=== PATIENT | female | born 1975 | race African-American/Black ===

== ENCOUNTER 2018-01-25 19:32 | Emergency (ER) | payer BC ==
[~2018-01-25] VITALS: Ht 165.1 cm; Wt 84.8 kg
--- OUTSIDE RECORDS SUMMARY | 2018-03-10 03:36 | XMS REPORT ---
Author Author [facility] [place] Address Unknown Phone Unavailable Care Team Providers Care Forms Analyst Name Role Phone KATIA EARLY Unavailable Unavailable Problems This patient has no known problems. Allergies, Adverse Reactions, Alerts This patient has no known allergies or adverse reactions. Medications This patient has no known medications. Results Test Description Test Time Test Comments Text Results Atomic Results Result Comments SP LUMBAR, COMPLETE MIN 4VW [place] [address] Patient Name: KAREEM GARCIA MR #: [id number] : 1975 Age/Sex: 41/F Req #: [id number] Adm Physician: Ordered by: THANH LEÓN Report #: [id number] Location: ER Room/Bed: _ Procedure: [id number] DX/SP LUMBAR, COMPLETE MIN 4VW Exam Date: 04/14/17 Exam Time: 1735 REPORT STATUS: Signed PROCEDURE: L-SPINE COMPLETE COMPARISON: None. INDICATIONS: LOWER BACK PAIN FINDINGS: There are 5 lumbar-type vertebral bodies. The vertebral bodies are well-aligned without evidence of spondylolisthesis. There are no acute, displaced fractures, lytic or blastic lesions. The vertebral body and disc-space heights are well-maintained. Bilateral oblique views show no spondylolysis. The sacroiliac joints are unremarkable. Nonobstructive bowel gas pattern with moderate amount of retained stool. CONCLUSION: Essentially unremarkable lumbar spine radiograph. Lilli Duckworth M.D. Dictated by: Lilli Duckworth M.D. on 04/14/2017 at 17:59 Electronically approved by: Lilli Duckworth M.D. on 2016 at 17:59 Dictated By: LILLI DUCKWORTH MD 58 Transcribed By: ANIKA on 1758 COPY TO: THANH LEÓN
== END 2018-01-25 20:25 | disposition home or self-care (01) ==
LOC: FSED 19:32
DX: M54.5 Low back pain (principal); S39.012A Strain of muscle, fascia and tendon of lower back, initial encounter; W17.89XA Other fall from one level to another, initial encounter; Y92.008 Other place in unspecified non-institutional (private) residence as the place of occurrence of the external cause
CPT/HCPCS: 99283

== ENCOUNTER 2018-07-08 21:05 | Emergency (ER) | payer BC ==
[~2018-07-08] VITALS: Ht 165.1 cm; Wt 84.8 kg
== END 2018-07-08 22:15 | disposition home or self-care (01) ==
LOC: FSED 21:05
DX: R05 Cough (principal); J06.9 Acute upper respiratory infection, unspecified; J00 Acute nasopharyngitis [common cold]
CPT/HCPCS: 83518; 87400; 99283

== ENCOUNTER 2018-10-05 08:26 | Emergency (ER) | payer BC ==
[~2018-10-05] VITALS: Ht 162.6 cm; Wt 89.4 kg
[2018-10-05] MEDS ORDERED: KETOROLAC TROMETHAMINE 30 MG/ML VIAL IV STA (09:07)
[2018-10-05] MEDS ORDERED: KETOROLAC TROMETHAMINE 60 MG/2 ML VIAL IM ONE (09:45)
--- NOTE | 2018-10-05 09:59 | Diagnostic Imaging Report ---
EXAMINATION: PA and lateral views of the chest. COMPARISON: None CLINICAL HISTORY: Chest pain x1 day DISCUSSION: Lines/tubes: None. Lungs: The lungs are well inflated and clear. There is no evidence of pneumonia or pulmonary edema. Pleura: There is no pleural effusion or pneumothorax. Heart and mediastinum: The cardiomediastinal silhouette is normal. Bones and soft tissues: No acute bony abnormalities. Degenerative changes in the thoracic spine IMPRESSION: No acute cardiopulmonary abnormalities. Signed by: Dr. Torey Stover M.D. on 10/05/2018 9:56 AM
[2018-10-05 10:06] VITALS: BP 129/67
== END 2018-10-05 10:25 | disposition home or self-care (01) ==
LOC: FSED 08:26
DX: M94.0 Chondrocostal junction syndrome [Tietze] (principal)
CPT/HCPCS: 71046; 80053; 84484; 85025; 85379; 93005; 99284; J1885 ×2

== ENCOUNTER 2019-04-13 16:02 | Emergency (ER) | payer BC ==
[~2019-04-13] VITALS: Ht 162.6 cm; Wt 83.2 kg
[2019-04-13] MEDS ORDERED: KETOROLAC TROMETHAMINE 60 MG/2 ML VIAL IM ONE (16:45)
[2019-04-13] MEDS ORDERED: KETOROLAC TROMETHAMINE 60 MG/2 ML VIAL ONE (17:04)
--- NOTE | 2019-04-13 17:13 | Diagnostic Imaging Report ---
Shoulder complete CPT code: 81879 Indication: Tree branch fell on patient. Technique: Internal, external and Y-view of right shoulder obtained. Comparison: None. Findings: There is no current dislocation. No evidence of fracture involving humeral head. Visualized proximal shaft is intact. The clavicle is intact. The clavicle and acromion are properly aligned. No fracture evident involving the visualized portion of the scapula. The visualized chest is unremarkable. IMPRESSION: No evidence of acute fracture or dislocation involving the shoulder. Signed by: Dr. Eduardo Foss MD on 04/13/2019 5:09 PM
[2019-04-13 18:26] VITALS: BP 119/75
== END 2019-04-13 18:13 | disposition home or self-care (01) ==
LOC: FSED 16:02
DX: S43.51XA Sprain of right acromioclavicular joint, initial encounter (principal); S40.011A Contusion of right shoulder, initial encounter; W22.8XXA Striking against or struck by other objects, initial encounter; Y93.9 Activity, unspecified; Y92.019 Unspecified place in single-family (private) house as the place of occurrence of the external cause
CPT/HCPCS: 73030; 96372; 99283; J1885

== ENCOUNTER 2021-07-09 16:06 | Emergency (ER) | payer BC ==
[~2021-07-09] VITALS: Ht 162.6 cm; Wt 79.4 kg
[2021-07-09] MEDS ORDERED: NAPROSYN500 MG PO (16:35)
== END 2021-07-09 17:13 | disposition home or self-care (01) ==
LOC: FSED 16:16
DX: M25.532 Pain in left wrist (principal); S64.22XA Injury of radial nerve at wrist and hand level of left arm, initial encounter; W22.09XA Striking against other stationary object, initial encounter; Y93.E6 Activity, residential relocation; Y92.008 Other place in unspecified non-institutional (private) residence as the place of occurrence of the external cause
CPT/HCPCS: 99282